=== PATIENT | female | born 1985 ===

== ENCOUNTER 2021-02-01 09:53 | Inpatient (IN) | payer OTHER ==
--- NOTE | 2021-01-29 12:58 | History and Physical Report ---
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 Denies labor complaint or PIH symptoms. Past History Past Medical History: hematologic disorders (Hgb O - [place] (FOB neg, AA)), other (depression) Past Surgical History: appendectomy (open), section (x1) DESIGN CONSULTANT History: herpes Family/Genetic History: none Social history: no significant social history - Obstetrical History : 2 Para: 1 Hx # Term Pregnancies: 1 Number of Living Children: 1 Medications and Allergies Active Meds: Active Medications Citric Acid/Sodium Citrate (Bicitra Oral Liqd 30ml) 30 ml PO ONCE ONE Stop: 01/29/21 12:22 Famotidine (Famotidine 20 Mg/2 Ml Inj) 20 mg IV ONCE ONE Stop: 01/29/21 12:22 Lactated Ringer's (Lactated Ringers) 1,000 mls @ 2,250 mls/hr IV PREOP MAY Stop: 01/30/21 12:57 Oxytocin/Sodium Chloride (Pitocin/Ns 30 Unit/500ml) 30 units in 500 mls @ 0 mls/hr IV TITR MAY; Protocol Cefazolin Sodium (Ancef/Sterile Water 2 Gm/20 Ml) 2 gm in 20 mls @ 80 mls/hr IV PREOP NR; Protocol Metoclopramide HCl (Metoclopramide 10 Mg/2 Ml Inj) 10 mg IV ONCE ONE Stop: 01/29/21 12:22 Review of Systems All systems: negative (expect HPI) - Physical Exam Cardiovascular: Regular rate Lungs: Positive: Clear to auscultation Abdomen: Positive: normal appearance, normal bowel sounds - Obstetrical FHR: category 1 Uterine Contraction Monitor Mode: External Uterine Contraction Pattern: Absent Results All other labs normal. Assessment and Plan - Patient Problems (1) H/O: Status: Acute Plan to address problem: --To OR for repeat c/s --Consented in the chart --Questions solicited and answered (2) Herpes Status: Acute Plan to address problem: --If no lesions can d/c valtrex (3) Depression Status: Acute Plan to address problem: --Continue Zoloft 50mg qday
[2021-02-01] MEDS ORDERED: ceFAZolin/Water 2 GM/20 ML 2 GM/20 ML SYRINGE IV NR (10:00)
[2021-02-01] MEDS: LACTATED RINGERS 1,000 ML IV SCH ×2 (10:28→11:22)
--- NOTE | 2021-02-01 10:42 | Anesthesia Day of Surgery ---
Anesthesia Day of Surgery - Day of Surgery Patient Examined: Yes Patient H&P Reviewed: Yes Patient is NPO: Yes
--- NOTE | 2021-02-01 10:42 | Anesthesia Consultation ---
Anesthesia Consult and Med Hx Date of service: 02/01/21 - Airway Anesthetic Teeth Evaluation: Caps ROM Head & Neck: Adequate Mental/Hyoid Distance: Adequate Mallampati Class: Class II Intubation Access Assessment: Probably Good - Pulmonary Exam CTA: Yes - Cardiac Exam Cardiac Exam: RRR - Pre-Operative Health Status ASA Pre-Surgery Classification: ASA3 Proposed Anesthetic Plan: Spinal - Pulmonary Hx Smoking: Yes Hx Asthma: No - Cardiovascular System Hx Hypertension: No - Central Nervous System Hx Seizures: No Hx Psychiatric Problems: No - Endocrine Hx Renal Disease: No Hx Hypothyroidism: No Hx Hyperthyroidism: No - Hematic Hx Anemia: Yes Hx Sickle Cell Disease: No - Other Systems Hx Alcohol Use: Yes (occassional) Hx Obesity: Yes
[2021-02-01] MEDS ORDERED: OXYTOCIN DRIP 30 UNITS/500 ML BAG IV SCH ×2 (11:00→14:00)
[2021-02-01] MEDS ORDERED: dexAMETHasone 20 MG/5 ML VIAL ONE (11:05)
[2021-02-01] MEDS ORDERED: ONDANSETRON 4 MG/2 ML INJ ONE (11:05)
[2021-02-01] MEDS ORDERED: BUPIVACAINE/PF (0.5%) 5 MG/1 ML 30 ML VIAL INFILTRATI ONE (11:05)
[2021-02-01] MEDS ORDERED: KETOROLAC 30 MG/1 ML INJ ONE (11:05)
[2021-02-01 11:12] LABS: Basophils % (Auto) 0.4 % (0.0-1.8); Eosinophils # (Auto) 0.1 K/mm3 (0.0-0.4); Eosinophils % (Auto) 0.5 % (0.0-4.3); Lymphocytes # (Auto) 1.7 K/mm3 (1.2-5.4); Lymphocytes % (Auto) 12.5 % (13.4-35.0); Mean Corpuscular HGB Conc 34 % (30-34); Mean Corpuscular Volume 81 fl (79-97); Monocytes # (Auto) 0.7 K/mm3 (0.0-0.8); Monocytes % (Auto) 5.4 % (0.0-7.3); Platelet Count 233 K/mm3 (140-440); Red Blood Count 4.71 M/mm3 (3.65-5.03); Red Cell Distribution Width 13.4 % (13.2-15.2)
[2021-02-01] MEDS ORDERED: FAMOTIDINE 20 MG/2 ML INJ IV ONE (12:00)
[2021-02-01] MEDS ORDERED: BICITRA ORAL LIQD 30ML PO ONE (12:00)
[2021-02-01] MEDS ORDERED: METOCLOPRAMIDE 10 MG/2 ML INJ IV ONE (12:00)
[2021-02-01] MEDS ORDERED: PHENYLEPHRINE/NS 1,000 MCG/10 ML SYRINGE (OR USE) IV ONE (13:13)
[2021-02-01] MEDS ORDERED: LACTATED RINGERS 3,000 ML ONE (13:14)
[2021-02-01] MEDS ORDERED: HETASTARCH 6% 500 ML IV ONE (13:14)
[2021-02-01] MEDS ORDERED: PROMETHAZINE 25 MG RECT SUPP PR PRN (13:26)
[2021-02-01] MEDS ORDERED: SENNOSIDES 8.6 MG TAB PO PRN (13:26)
[2021-02-01] MEDS ORDERED: ONDANSETRON 4 MG/2 ML INJ IV PRN (13:26)
[2021-02-01] MEDS ORDERED: MORPHINE 4 MG/1 ML INJ IV PRN (13:26)
[2021-02-01] MEDS ORDERED: LANOLIN/ZINC/DIMETHICONE (LANSINOH) 7 GM TP PRN (13:26)
[2021-02-01] MEDS ORDERED: ACETAMINOPHEN 325 MG TAB PO PRN (13:26)
[2021-02-01] MEDS ORDERED: HYDROCORTISONE 25 MG RECTAL SUPP PR PRN (13:26)
[2021-02-01] MEDS ORDERED: NALOXONE 0.4 MG/1 ML INJ IV PRN (13:26)
[2021-02-01] MEDS ORDERED: MAGNESIUM HYDROXIDE (MOM) ORAL LIQD UDC PO PRN (13:26)
[2021-02-01] MEDS ORDERED: SIMETHICONE 80 MG CHEW TAB PO PRN (13:26)
[2021-02-01] MEDS ORDERED: WITCH HAZEL/ GLYCERIN PAD TP PRN (13:26)
--- NOTE | 2021-02-01 13:30 | Procedure Note ---
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 Findings: Normal uterus, tubes and ovaries. Clear fluid. No nuchal cord. Delivery of male infant at 1240 Weight 3432g Height 20 in APGARS 8/9 EBL 800cc IVF 2000 UOP 50 Procedure: Patient was taken to the operating room prepped and draped in the usual sterile fashion. Pfannenstiel skin incision was made and carried down to the underlying fascia. Fascia was incised and the incision was distended bilaterally. Rectus fascia was dissected off the rectus muscle superiorly and inferiorly. Peritoneum was identified and entered. Peritoneal incision extended superiorly and inferiorly. The bladder was visualized. The bladder blade was placed. Uterine hysterotomy incision was made and extended bilater ally. The baby was delivered in the typical vertex fashion with assistance of the Kiwi vacuum extractor. Baby was bulb suction at delivery. The cord was cut and clamped and handed off to the team. The placenta was delivered spontaneously. The uterus was exteriorized and cleared of all clots and debris. Uterine incision was closed with a 0 Vicryl in a running locked fashion. Good hemostasis was noted after 2 additional [id number] sutures applied to the uterine incision. Hemoblast was applied to the uterine incisional base to provide hemostasis. The urine was noted to be clear. Uterus, tubes, and ovaries were returned to the abdominal cavity. Bilateral gutters were cleared and the abdomen and pelvis were irrigated. Good hemostasis noted. The rectus muscle was reapproximated with 2-0 Vicryl. Attention was directed towards the rectus fascia which was reapproximated with 0 PDS in a running fashion. The subcutaneous tissue was irrigated and reapproximated with 2-0 Vicryl in a running fashion. Skin was closed with a 4-0 Vicryl in a subcuticular fashion. The procedure was completed and the patient tolerated the procedure well. All instruments and lap counts were correct x2. - A at 1 minute: 8 at 5 minutes: 9 Gender: Male
[2021-02-01] MEDS: KETOROLAC 30 MG/1 ML INJ IV SCH (20:25)
[2021-02-02 01:30] LABS: Hematocrit 33.8 % (30.3-42.9); Hemoglobin 11.6 gm/dl (10.1-14.3)
[2021-02-02] MEDS: KETOROLAC 30 MG/1 ML INJ IV SCH ×2 (02:11→08:00)
--- NOTE | 2021-02-02 10:31 | Progress Note ---
Assessment and Plan - Patient Problems (1) H/O: Current Visit: No Status: Acute Plan to address problem: POD1 s/p rTLCS --Patient with persistent right leg pain. Hasn't ambulated much. Encouraged ambulation. If persistent will need to consult anesthesia for evaluation. --Routine /postoperative care --Plan to remove bandage tomorrow --Repeat CBC tomorrow AM given mild leukocytosis on admission. No current evidence of infection --Anticipate discharge in 24-48 hours (2) Depression Current Visit: No Status: Acute Plan to address problem: --Continue Zoloft 50mg qday Subjective - Subjective Date of service: 02/02/21 Principal diagnosis: rLTCS Interval history: Patient doing well. Patient with right leg pain radiating up to back, but hasn't really ambulated much. Weber in place. Ready for food today AM. Denies flatus. Bottle feeding because milk hasn't come in. : doing well Objective - Vital Signs Latest vital signs: Vital Signs Temp Pulse Resp BP BP Pulse Ox 02/02/21 08:07 98.5 F 71 20 99/60 95 02/02/21 05:58 16 02/02/21 04:25 98.5 F 74 18 104/58 95 02/02/21 02:11 14 02/02/21 01:27 98.0 F 72 18 105/59 93 02/01/21 20:55 16 02/01/21 20:45 97.9 F 77 18 113/61 92 02/01/21 20:25 16 02/01/21 15:30 97.9 F 75 20 99/64 100 02/01/21 15:10 97.6 F 63 20 96/58 98 02/01/21 15:09 61 19 93/52 98 02/01/21 15:00 63 18 94/59 98 02/01/21 14:56 66 18 100/47 98 02/01/21 14:52 70 18 99/51 97 02/01/21 14:45 74 17 99/57 97 02/01/21 14:40 78 18 102/56 97 02/01/21 14:37 79 18 93/41 02/01/21 14:30 96.2 F L 71 17 98/46 02/01/21 14:25 72 19 91/51 02/01/21 14:20 74 18 93/52 97 02/01/21 14:15 72 18 92/46 97 02/01/21 14:10 75 18 98/54 97 02/01/21 14:01 82 18 90/46 97 02/01/21 13:56 84 18 93/51 96 02/01/21 13:50 86 16 94/50 96 02/01/21 13:47 82 16 92/54 95 02/01/21 13:40 72 16 92/48 95 02/01/21 13:39 76 19 87/40 95 02/01/21 13:34 97.6 F 76 13 85/36 95 Intake and Output 02/01/21 02/02/21 02/02/21 23:59 07:59 15:59 Intake Total 120 120 120 Output Total 450 Balance -330 120 120 Intake: Oral 120 120 120 Output: Urine 450 Indwelling Catheter 450 Other: Total, Intake Amount 120 120 120 Total, Output Amount 450 - Exam Abdomen: Present: normal appearance, normal bowel sounds, other Uterus: Present: firm Incision: Present: normal, dressed - Labs Labs: Abnormal lab results 02/01/21 Range/Units 10:15 WBC 13.2 H (4.5-11.0) K/mm3 Lymph % (Auto) 12.5 L (13.4-35.0) % Seg Neutrophils % 81.2 H (40.0-70.0) % Seg Neutrophils # 10.7 H (1.8-7.7) K/mm3
[2021-02-02] MEDS: SERTRALINE 50 MG TAB PO SCH (10:53)
[2021-02-02] MEDS: oxyCODONE /ACETAMINOPHEN 5-325MG TAB PO PRN ×2 (10:53→16:47)
--- NOTE | 2021-02-02 15:38 | Progress Note ---
Spinal Anesthesia Block - Spinal Anesthesia Block Start Time: 11:52 Stop Time: 12:00 Performed by:: AMI CARD Procedure: Sitting, sterile chlorahexadine 0.5% prep/drape, 1% lidocaine skin local, 25G spinal needle + introduced at L3-4, + CSF, - Heme, + paresthesia. Needle removed and repeated at L2-3, + CSF, - heme, - paresthesia, [1.9 ml 0.5% bupivacaine + 10 mcg dexmedetomidine] injected, drape removed, patient positioned supine with left uterine displacement, and spinal level verified to be adequate prior to surgery.
--- NOTE | 2021-02-02 15:39 | Progress Note ---
Regional Anesthesia Block - Regional Anesthesia Block Start Time: 13:40 Stop Time: 13:45 Performed By:: AMI CARD Procedure: U/S guided bilateral tap block performed for post-operative pain requested by Dr. Huang. H&P & labs reviewed. Procedure explained, questions answered, consent obtained. Patient in the supine position with ekg, blood pressure cuff and pulse ox on and working in PACU. Timeout performed immediately before start of procedure. Probe placed in the mid-axillary line and the external oblique, internal oblique, and transverse abdominus muscles identified. Skin was cleansed with chlorahexadine 0.5% and allowed to dry. A 4" 20 G Luna echogenic needle was advanced in plane until the tip was in the fascial plane between the internal oblique and the transverse abdominus. After negative aspiration 35 ml/side of [30 ml 0.5% Bupivacaine], [10 mg dexamethasone], and [40 ml sterile saline] was injected in 5 ml increments with negative aspiration in between. Patient tolerated procedure well. Shea SRNA
--- NOTE | 2021-02-02 15:40 | Post Anesthesia Evaluation ---
- Post Anesthesia Evaluation Patient Participated: Yes Airway Patent: Yes Stable Respiratory Function: Yes Nausea/Vomiting: No Temp > 96.8F: Yes Pain Manageable: Yes Adequeate Hydration: Yes Anesthesia Complications: No Block Receding Appropriately: Yes (Numbness R leg, pt states improving, no motor weakness.)
[2021-02-02] MEDS: IBUPROFEN 800 MG TAB PO PRN (22:02)
[2021-02-03] MEDS: IBUPROFEN 800 MG TAB PO PRN (05:26)
[2021-02-03] MEDS: SERTRALINE 50 MG TAB PO SCH (09:29)
[2021-02-03] MEDS: oxyCODONE /ACETAMINOPHEN 5-325MG TAB PO PRN (09:29)
[2021-02-03 09:45] LABS: Basophils # (Auto) 0.1 K/mm3 (0.0-0.1); Basophils % (Auto) 0.6 % (0.0-1.8); Eosinophils # (Auto) 0.1 K/mm3 (0.0-0.4); Eosinophils % (Auto) 0.9 % (0.0-4.3); Hematocrit 33.3 % (30.3-42.9); Hemoglobin 11.6 gm/dl (10.1-14.3); Lymphocytes # (Auto) 2.3 K/mm3 (1.2-5.4); Lymphocytes % (Auto) 17.9 % (13.4-35.0); Mean Corpuscular HGB Conc 35 % (30-34); Mean Corpuscular Volume 81 fl (79-97); Monocytes # (Auto) 0.8 K/mm3 (0.0-0.8); Platelet Count 230 K/mm3 (140-440); Red Blood Count 4.12 M/mm3 (3.65-5.03); Red Cell Distribution Width 13.6 % (13.2-15.2)
--- NOTE | 2021-02-03 10:07 | Discharge Summary ---
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 Meeting /postoperative goals by POD2 and discharged in good condition. Condition at discharge: Good Disposition: DC-01 TO HOME OR SELFCARE - Discharge Diagnoses (1) H/O: Status: Acute (2) Depression Status: Acute Plan - Discharge Medications Prescriptions: Ibuprofen [Motrin 800 MG tab] 800 mg PO Q6H PRN #30 tablet PRN Reason: Pain, Mild (1-3) oxyCODONE /ACETAMINOPHEN [Percocet 5/325 mg] 1 tab PO Q6H PRN #30 tablet PRN Reason: Pain, Moderate (4-6) - Provider Discharge Summary Activity: no sex for 6 weeks, no heavy lifting 4 weeks, no strenuous exercise Diet: routine Instructions: routine Additional instructions: [] Smoking cessation referral if applicable(refer to patient education folder for contact #) [] Refer to [facility] Booklet Call your doctor immediately for: * Fever > 100.5 * Heavy vaginal bleeding ( >1 pad per hour) * Severe persistent headache * Shortness of breath * Reddened, hot, painful area to leg or breast * Drainage or odor from incision. * Keep incision clean and dry at all times and follow doctor's instructions regarding bathing/showering - Follow up plan Follow up: LALO MANE JR, MD [Primary Care Provider] - 14 Days
[2021-02-03 12:52] VITALS: BP 143/77
== END 2021-02-03 13:16 | disposition home or self-care (01) | DRG 787 ==
LOC: APU 09:53 → OB 14:57
PROVIDERS: ADMIT Obstetrics & Gynecology; ATTEND Obstetrics & Gynecology
PROC: 10D00Z1 Extraction of Products of Conception, Low, Open Approach (ICD-10-PCS; principal; 2021-02-01)
PROC: 3E0T3BZ Introduction of Anesthetic Agent into Peripheral Nerves and Plexi, Percutaneous Approach (ICD-10-PCS; 2021-02-01)
DX: O34.211 Maternal care for low transverse scar from previous cesarean delivery (principal); O98.52 Other viral diseases complicating childbirth; Z3A.39 39 weeks gestation of pregnancy; Z37.0 Single live birth; Z20.822 Contact with and (suspected) exposure to COVID-19; Z91.013 Allergy to seafood; O99.214 Obesity complicating childbirth; E66.9 Obesity, unspecified; O99.284 Endocrine, nutritional and metabolic diseases complicating childbirth; O99.344 Other mental disorders complicating childbirth; F32.9 Major depressive disorder, single episode, unspecified; E55.9 Vitamin D deficiency, unspecified; O99.334 Smoking (tobacco) complicating childbirth; F17.200 Nicotine dependence, unspecified, uncomplicated; O99.02 Anemia complicating childbirth; D64.9 Anemia, unspecified; B00.9 Herpesviral infection, unspecified
CPT/HCPCS: 36415; 85014; 85018; 85025; 86850; 86900; 86901; G0378; J1100; J1885; J2270; J2370; J2405; J2765; J3490; J7120; U0003